=== PATIENT | female | born 1945 | race Caucasian/White ===

== ENCOUNTER → 2020-10-21 | Day surgery (SDC) | payer OTHER | END | disposition home or self-care (01) | LOC: JRADUS-SUR 08:35 | PROVIDERS: ATTEND Internal Medicine Infectious Disease | PROC: 0H9U3ZX Drainage of Left Breast, Percutaneous Approach, Diagnostic (ICD-10-PCS; principal; 2020-10-21) | DX: C50.912 Malignant neoplasm of unspecified site of left female breast (principal) | CPT/HCPCS: 19083; 77065-TC; 87899; A4648 ==

== ENCOUNTER 2021-01-29 04:45 | Day surgery (SDC) | payer OTHER ==
[2021-01-26 15:12] VITALS: BMI 37.4
[2021-01-29 10:33] VITALS: TEMP 97.5
[2021-01-29 11:10] VITALS: BP 136/70; PULSE 62
== END 2021-01-29 11:53 | disposition home or self-care (01) ==
LOC: JASU-ENDO 04:45
PROVIDERS: ATTEND Internal Medicine Gastroenterology
PROC: 0DBL8ZX Excision of Transverse Colon, Via Natural or Artificial Opening Endoscopic, Diagnostic (ICD-10-PCS; 2021-01-29)
PROC: 0DBK8ZX Excision of Ascending Colon, Via Natural or Artificial Opening Endoscopic, Diagnostic (ICD-10-PCS; 2021-01-29)
PROC: 0DBP8ZX Excision of Rectum, Via Natural or Artificial Opening Endoscopic, Diagnostic (ICD-10-PCS; 2021-01-29)
PROC: 0DBH8ZX Excision of Cecum, Via Natural or Artificial Opening Endoscopic, Diagnostic (ICD-10-PCS; principal; 2021-01-29 10:00)
DX: F12.11 Cannabis abuse, in remission (principal); K62.1 Rectal polyp; K63.5 Polyp of colon; D12.3 Benign neoplasm of transverse colon; K57.30 Diverticulosis of large intestine without perforation or abscess without bleeding; E78.5 Hyperlipidemia, unspecified; I10 Essential (primary) hypertension; J45.909 Unspecified asthma, uncomplicated; E03.9 Hypothyroidism, unspecified
CPT/HCPCS: 88305-TC

== ENCOUNTER 2023-02-28 12:05 | Inpatient (IN) | payer OTHER ==
[2023-02-28 12:37] VITALS: BMI 32.4
[2023-02-28 13:29] LABS: BASO % 2.6 % (0-2.0); EOS % 1.3 % (0-4.5); HEMATOCRIT 30.5 % (32.4-45.2); HEMOGLOBIN 10.5 GM/dL (10.7-15.3); LYMPH % 17.9 % (8-40); MCHC 34.4 g/dl (32.0-36.0); MEAN CELL VOLUME 101.9 fl (80-96); MEAN PLT VOLUME 8.7 fl (7.5-11.1); MONO % 3.3 % (3.8-10.2); NEUT % 74.9 % (42.8-82.8); PLATELET COUNT 150 10^3/uL (134-434); RDW 15.2 % (11.6-15.6); WHITE BLOOD COUNT 2.6 K/mm3 (4.0-10.0)
[2023-02-28 13:36] LABS: INR 1.03 (0.83-1.09); PROTHROMBIN TIME (PATIENT) 11.9 SEC (9.7-13.0)
[2023-02-28 13:39] LABS: ACTIVATED PTT 29.7 SECONDS (25.2-36.5)
[2023-02-28 13:45] LABS: POTASSIUM 3.9 mmol/L (3.5-5.1)
[2023-02-28 13:47] LABS: CALCIUM 9.2 mg/dL (8.5-10.1)
[2023-02-28 13:48] LABS: ALBUMIN 3.6 g/dl (3.4-5.0)
[2023-02-28 13:51] LABS: CREATININE 1.7 mg/dL (0.55-1.3)
[2023-02-28 13:53] LABS: TOT PROT 6.6 g/dl (6.4-8.2)
[2023-02-28 13:54] LABS: BILIRUBIN,TOTAL 0.5 mg/dL (0.2-1)
[2023-02-28] MEDS ORDERED: ASPIRIN 81 MG CHEWABLE TABLETS PO ONE (14:40)
[2023-02-28] MEDS ORDERED: ASPIRIN 81 MG CHEWABLE TABLETS ONE (14:57)
[2023-02-28] MEDS ORDERED: traMADol HCL 50 MG TABLET PO PRN (16:28)
[2023-02-28] MEDS ORDERED: LACTATED RINGERS SOLUTION 1,000 ML IV SCH (16:30)
[2023-02-28 19:11] LABS: EPI CELLS 10 /uL (0-25.1); HYALINE CASTS 1 /uL (0-3.1); PH,URINE 5.5 (5.0-8.0); URINE APPEARANCE CLEAR; URINE BACTERIA >9,000 /uL (0-1359); URINE BILIRUBIN NEGATIVE (NEGATIVE); URINE COLOR YELLOW; URINE GLUCOSE (UA) NEGATIVE (NEGATIVE); URINE KETONE NEGATIVE (NEGATIVE); URINE LEUK ESTERASE 1+ (NEGATIVE); URINE NITRITE NEGATIVE (NEGATIVE); URINE PROTEIN TRACE (NEGATIVE); URINE RBC 15 /uL (0-23.9); URINE WBC 199 /uL (0-25.8)
[2023-02-28] MEDS ORDERED: PALBOCICLIB 100 MG PO SCH (22:00)
[2023-02-28] MEDS ORDERED: ZAFIRLUKAST 20 MG PO SCH (22:00)
[2023-02-28] MEDS ORDERED: ANASTROZOLE 1 MG TABLET PO SCH (22:00)
[2023-02-28] MEDS ORDERED: ATORVASTATIN CA 40 MG TABLET (FP) PO SCH (22:00)
[2023-03-01] MEDS ORDERED: LEVOTHYROXINE NA 112 MCG TABLET (FP) PO SCH (07:00)
[2023-03-01 08:44] LABS: BASO % 2.6 % (0-2.0); HEMATOCRIT 26.2 % (32.4-45.2); HEMOGLOBIN 9.3 GM/dL (10.7-15.3); LYMPH % 27.2 % (8-40); MCH 35.3 pg (25.7-33.7); MCHC 35.4 g/dl (32.0-36.0); MEAN CELL VOLUME 99.8 fl (80-96); MEAN PLT VOLUME 7.5 fl (7.5-11.1); MONO % 4.5 % (3.8-10.2); NEUT % 63.7 % (42.8-82.8); PLATELET COUNT 120 10^3/uL (134-434); RBC 2.63 M/mm3 (3.60-5.2); RDW 15.2 % (11.6-15.6)
[2023-03-01 08:48] LABS: INR 1.06 (0.83-1.09); PROTHROMBIN TIME (PATIENT) 12.3 SEC (9.7-13.0)
[2023-03-01 09:01] LABS: POTASSIUM 3.8 mmol/L (3.5-5.1)
[2023-03-01 09:04] LABS: ALBUMIN 3.4 g/dl (3.4-5.0); BLOOD UREA NITROGEN 22.4 mg/dL (7-18)
[2023-03-01 09:07] LABS: CREATININE 1.4 mg/dL (0.55-1.3); PHOSPHOROUS 2.8 mg/dL (2.5-4.9)
[2023-03-01 09:08] LABS: BILIRUBIN,TOTAL 0.7 mg/dL (0.2-1)
[2023-03-01 09:09] LABS: TOT PROT 5.8 g/dl (6.4-8.2)
[2023-03-01] MEDS ORDERED: PARoxetine HCL 10 MG TABLET PO SCH (10:00)
[2023-03-01] MEDS ORDERED: amLODIPine BESYLATE 10 MG TABLET (FP) PO SCH (10:00)
[2023-03-01] MEDS ORDERED: ASPIRIN 81 MG CHEWABLE TABLETS PO SCH (10:00)
[2023-03-01] MEDS ORDERED: ENOXAPARIN NA (PORCINE) 40 MG/0.4 ML DISP.SYRIN SQ SCH (10:00)
[2023-03-01] MEDS ORDERED: QUINAPRIL HCL 40 MG TABLET PO SCH (10:00)
[2023-03-01] MEDS ORDERED: CLOPIDOGREL BISULFATE 75 MG TABLET (FP) PO SCH (10:45)
[2023-03-01 12:53] VITALS: RESP 18
[2023-03-01 14:49] VITALS: BP 128/75; PULSE 66; TEMP 98.2
== END 2023-03-01 18:07 | disposition home or self-care (01) | DRG 66 ==
LOC: JER 12:05 → JERBED 14:18 → J4W 15:20 → OBSVTOIN 03-01 09:27
PROVIDERS: ADMIT Internal Medicine; ATTEND Internal Medicine
DX: I63.89 Other cerebral infarction (principal); R29.700 NIHSS score 0; I12.9 Hypertensive chronic kidney disease with stage 1 through stage 4 chronic kidney disease, or unspecified chronic kidney disease; N18.9 Chronic kidney disease, unspecified; E78.5 Hyperlipidemia, unspecified; E03.9 Hypothyroidism, unspecified; D64.9 Anemia, unspecified; D70.9 Neutropenia, unspecified; R82.81 Pyuria; M48.02 Spinal stenosis, cervical region; D69.6 Thrombocytopenia, unspecified; D70.1 Agranulocytosis secondary to cancer chemotherapy; T45.1X5A Adverse effect of antineoplastic and immunosuppressive drugs, initial encounter
CPT/HCPCS: 0241U-QW; 36415; 70450-TC; 70551-TC; 72141-TC; 80053; 80061; 81003; 82550; 82607; 82728; 82746; 82962; 83036; 83540; 83550; 83735; 84100; 84484; 85025; 85610; 85730; 86850; 86900; 86901; 93005; 93010; 93306-TC; 93880-TC; 97116-GP; 97162-GP; 99285-25; G0378

== ENCOUNTER 2023-07-19 03:59 | Day surgery (SDC) | payer OTHER ==
[2023-07-18 15:24] VITALS: BMI 26.6
[2023-07-19 10:05] VITALS: RESP 18
[2023-07-19] MEDS ORDERED: LIDOCAINE HCL 1%, 10 MG/ML (20ML VIAL) INF ONE ×2 (10:29→10:42)
[2023-07-19 13:38] VITALS: BP 131/72; PULSE 57; TEMP 97.1
== END 2023-07-19 11:50 | disposition home or self-care (01) ==
LOC: JASU-SURG 03:59
PROVIDERS: ATTEND Orthopaedic Surgery
PROC: 015D3ZZ Destruction of Femoral Nerve, Percutaneous Approach (ICD-10-PCS; principal; 2023-07-19 11:30)
DX: M17.11 Unilateral primary osteoarthritis, right knee (principal)

== ENCOUNTER 2023-08-09 05:09 | Day surgery (SDC) | payer OTHER ==
[2023-08-01 16:36] VITALS: BMI 26.6
[~2023-08-09 05:09] MED LIST: LIDOCAINE HCL 1%, 10 MG/ML (20ML VIAL) INF ONE
[2023-08-09] MEDS ORDERED: LIDOCAINE HCL 1%, 10 MG/ML (20ML VIAL) ONE (07:27)
[2023-08-09] MEDS ORDERED: LIDOCAINE HCL 1%, 10 MG/ML (20ML VIAL) INF ONE (10:03)
[2023-08-09 10:35] VITALS: BP 120/74; PULSE 56; RESP 20; TEMP 98.8
== END 2023-08-09 12:02 | disposition home or self-care (01) ==
LOC: JASU-SURG 05:09
PROVIDERS: ATTEND Orthopaedic Surgery
PROC: 015D3ZZ Destruction of Femoral Nerve, Percutaneous Approach (ICD-10-PCS; principal; 2023-08-09 11:00)
DX: M17.12 Unilateral primary osteoarthritis, left knee (principal)

== ENCOUNTER 2024-01-31 14:18 | Emergency (ER) | payer OTHER ==
[2024-01-31 14:30] VITALS: BMI 30.1
[2024-01-31] MEDS ORDERED: ONDANSETRON 4 MG/2 ML VIAL ONE (15:15)
[2024-01-31] MEDS ORDERED: ACETAMINOPHEN INJECTION 100 ML IVPB ONE (15:15)
[2024-01-31 15:30] LABS: EOS % 3.8 % (0-4.5); HEMOGLOBIN 13.1 GM/dL (10.7-15.3); LYMPH % 28.9 % (8-40); MCH 30.4 pg (25.7-33.7); MCHC 32.8 g/dl (32.0-36.0); MEAN CELL VOLUME 92.6 fl (80-96); MEAN PLT VOLUME 7.6 fl (7.5-11.1); MONO % 6.6 % (3.8-10.2); NEUT % 59.7 % (42.8-82.8); PLATELET COUNT 282 10^3/uL (134-434); RBC 4.32 M/mm3 (3.60-5.2); RDW 17.4 % (11.6-15.6); WHITE BLOOD COUNT 10.4 K/mm3 (4.0-10.0)
[2024-01-31] MEDS: ACETAMINOPHEN 1000 MG/100 ML BAG IVPB ONE (15:36)
[2024-01-31] MEDS: ONDANSETRON 4 MG/2 ML VIAL IVPUSH ONE (15:36)
[2024-01-31] MEDS: SODIUM CHLORIDE 0.9% 500 ML INFUS.BAG IV ONE (15:36)
[2024-01-31 15:54] LABS: CALCIUM 11.1 mg/dL (8.5-10.1)
[2024-01-31 15:55] LABS: BLOOD UREA NITROGEN 30.8 mg/dL (7-18)
[2024-01-31 15:57] LABS: CREATININE 1.5 mg/dL (0.55-1.3)
[2024-01-31 15:59] LABS: BILIRUBIN,TOTAL 0.6 mg/dL (0.2-1); TOT PROT 7.2 g/dl (6.4-8.2)
[2024-01-31 16:44] LABS: MAGNESIUM 2.4 mg/dL (1.8-2.4)
[2024-01-31] MEDS ORDERED: LACTATED RINGERS SOLUTION 1,000 ML/1,000 ML INFUS.BAG IV SCH (16:45)
[2024-01-31] MEDS: LACTATED RINGERS SOLUTION 1000 ML INFUS.BAG IV ONE ×2 (16:52→18:18)
[2024-01-31 18:02] VITALS: BP 162/86; PULSE 74; RESP 19; TEMP 98.1
[2024-01-31 20:14] LABS: BASO % 0.5 % (0-2.0); EOS % 0.3 % (0-4.5); HEMATOCRIT 37.8 % (32.4-45.2); HEMOGLOBIN 12.4 GM/dL (10.7-15.3); LYMPH % 8.3 % (8-40); MCHC 32.9 g/dl (32.0-36.0); MEAN CELL VOLUME 91.1 fl (80-96); MEAN PLT VOLUME 7.4 fl (7.5-11.1); MONO % 4.6 % (3.8-10.2); NEUT % 86.3 % (42.8-82.8); PLATELET COUNT 216 10^3/uL (134-434); RBC 4.15 M/mm3 (3.60-5.2); RDW 17.4 % (11.6-15.6); WHITE BLOOD COUNT 12.4 K/mm3 (4.0-10.0)
[2024-01-31 21:07] LABS: ALBUMIN 3.5 g/dl (3.4-5.0); BLOOD UREA NITROGEN 26.9 mg/dL (7-18); MAGNESIUM 1.9 mg/dL (1.8-2.4)
[2024-01-31 21:10] LABS: CREATININE 1.1 mg/dL (0.55-1.3)
[2024-01-31 21:11] LABS: BILIRUBIN,TOTAL 0.5 mg/dL (0.2-1)
[2024-01-31 21:12] LABS: CALCIUM 9.4 mg/dL (8.5-10.1)
[2024-01-31 21:13] LABS: LACTIC ACID 2.3 mmol/L (0.4-2.0)
== END 2024-01-31 21:47 | disposition home or self-care (01) ==
LOC: JER 14:18
PROC: 3E033NZ Introduction of Analgesics, Hypnotics, Sedatives into Peripheral Vein, Percutaneous Approach (ICD-10-PCS; principal; 2024-01-31)
PROC: 3E033GC Introduction of Other Therapeutic Substance into Peripheral Vein, Percutaneous Approach (ICD-10-PCS; 2024-01-31)
DX: R11.2 Nausea with vomiting, unspecified (principal); R19.7 Diarrhea, unspecified; R10.9 Unspecified abdominal pain; R42 Dizziness and giddiness
CPT/HCPCS: 36415; 80053; 83605; 83690; 83735; 84484; 85025; 93005; 93010; 99284-25; J0131

== ENCOUNTER 2024-04-24 04:24 | Day surgery (SDC) | payer OTHER ==
[2024-04-22 13:47] VITALS: BMI 31.6
[2024-04-24] MEDS ORDERED: LIDOCAINE HCL 1%, 10 MG/ML (20ML VIAL) ONE (07:13)
[2024-04-24] MEDS ORDERED: MIDAZOLAM HCL 2 MG/2 ML SINGLE DOSE VIAL ONE (07:24)
[2024-04-24] MEDS ORDERED: SUCCINYLCHOLINE CHLORIDE 200 MG/10 ML SYRINGE ONE (07:24)
[2024-04-24] MEDS ORDERED: PROPOFOL 40 ML ONE (07:24)
[2024-04-24] MEDS ORDERED: ceFAZolin SODIUM 1 GM VIAL ONE (08:18)
[2024-04-24] MEDS ORDERED: DEXAMETHASONE SOD PHOSPHATE 4 MG/1 ML VIAL ONE (08:21)
[2024-04-24] MEDS ORDERED: ONDANSETRON 4 MG/2 ML VIAL ONE (08:21)
[2024-04-24] MEDS: ceFAZolin SODIUM 1 GM VIAL IVPB ONE (08:22)
[2024-04-24] MEDS: LIDOCAINE HCL 1%, 10 MG/ML (50 mL VIAL) INF ONE ×2 (08:27)
[2024-04-24] MEDS ORDERED: IBUPROFEN 600 MG TABLET (FP) PO PRN (09:00)
[2024-04-24] MEDS ORDERED: ACETAMINOPHEN 325 MG TABLET (FP) PO ONE (10:04)
[2024-04-24] MEDS ORDERED: ONDANSETRON 4 MG/2 ML VIAL IVPUSH PRN (10:04)
[2024-04-24] MEDS ORDERED: LACTATED RINGERS SOLUTION 1,000 ML IV SCH (10:15)
[2024-04-24 15:23] VITALS: RESP 20; TEMP 97.2
[2024-04-24 15:25] VITALS: BP 133/72; PULSE 56
== END 2024-04-24 10:52 | disposition home or self-care (01) ==
LOC: JASU-SURG 04:24
PROVIDERS: ATTEND Surgery
PROC: 0JH63WZ Insertion of Totally Implantable Vascular Access Device into Chest Subcutaneous Tissue and Fascia, Percutaneous Approach (ICD-10-PCS; principal; 2024-04-24 08:00)
DX: C50.919 Malignant neoplasm of unspecified site of unspecified female breast (principal)
CPT/HCPCS: 36561; C1751; 71045-TC-FY; 76000-TC-FY; 94760; C1788; J1644